=== PATIENT | male | born 1950 | race Caucasian/White ===

== ENCOUNTER 2017-05-15 16:58 | Inpatient (IN) | payer MEDICARE ==
[~2017-05-15] VITALS: Ht 162.6 cm; Wt 72.0 kg
[2017-05-15 20:00] VITALS: BP 136/68
[2017-05-15] MEDS ORDERED: ACETAMINOPHEN 325MG TABLET PO PRN (20:00)
[2017-05-15] MEDS ORDERED: ONDANSETRON HCL 4MG/2ML VIAL IV PRN (20:00)
[2017-05-15] MEDS ORDERED: FAMOTIDINE 20MG TABLET PO NR (20:15)
[2017-05-15] MEDS ORDERED: DEXTROSE 50% WATER 50ML SYRINGE IV PRN (20:30)
[2017-05-15] MEDS: BLOOD SUGAR DIAGNOSTIC STRIP TEST SCH (21:00)
[2017-05-15 22:00] VITALS: BP 136/68
[2017-05-15] MEDS: ATORVASTATIN CALCIUM 40MG TABLET PO SCH (22:00)
[2017-05-15] MEDS: INSULIN LISPRO 100 UNITS/ML SUBCUT SCH (22:11)
[2017-05-15] MEDS: INSULIN GLARGINE UD 100 UNITS/ML SYR SUBCUT SCH (22:22)
[2017-05-16] MEDS: BLOOD SUGAR DIAGNOSTIC STRIP TEST SCH ×4 (06:12→21:04)
[2017-05-16] MEDS: INSULIN LISPRO 100 UNITS/ML SUBCUT SCH ×7 (06:13→21:00)
[2017-05-16 06:42] LABS: EOSINOPHILS % 1.1 % (0.0-5.0); HEMATOCRIT. 39.9 % (42.0-52.0); HEMOGLOBIN. 13.4 g/dL (14.0-18.0); LYMPHOCYTES % 19.1 % (20.0-50.0); MEAN CORPUSCULAR HEMOGLOBIN 30.4 pg (28.0-32.0); MEAN CORPUSCULAR VOLUME 90.3 fL (80.0-94.0); MEAN PLATELET VOLUME 8.1 fl (7.4-10.4); MONOCYTES % 7.4 % (2.0-8.0); NEUTROPHILS % 71.4 % (40.0-76.0); PLATELET 289 x1000/uL (130-400); RED BLOOD CELL COUNT 4.42 mill/uL (4.7-6.1); RED CELL DISTRIBUTION WIDTH 12.8 % (11.6-14.6)
[2017-05-16 07:22] LABS: CHLORIDE 107 mEq/L (98-107)
[2017-05-16 07:33] LABS: PREALBUMIN 24.5 mg/dL (20.0-40.0)
[2017-05-16 08:00] VITALS: BP 122/60
[2017-05-16] MEDS: SENNOSIDES/DOCUSATE SOD 8.6/50MG TABLET PO SCH (08:09)
[2017-05-16] MEDS: ASPIRIN 325MG EC TABLET PO SCH (08:09)
[2017-05-16] MEDS: CLOPIDOGREL 75MG TABLET PO SCH (08:09)
[2017-05-16] MEDS: FAMOTIDINE 20MG TABLET PO SCH ×2 (08:10→21:11)
[2017-05-16] MEDS ORDERED: ASPIRIN 300MG SUPP PR SCH ×2 (09:00)
[2017-05-16] MEDS: METFORMIN HCL 500MG TABLET PO SCH (18:38)
[2017-05-16 20:00] VITALS: BP 129/67
[2017-05-16] MEDS: ATORVASTATIN CALCIUM 40MG TABLET PO SCH (21:11)
[2017-05-16] MEDS: INSULIN GLARGINE UD 100 UNITS/ML SYR SUBCUT SCH (21:11)
[2017-05-17] MEDS: BLOOD SUGAR DIAGNOSTIC STRIP TEST SCH ×2 (05:46→12:12)
[2017-05-17] MEDS: INSULIN LISPRO 100 UNITS/ML SUBCUT SCH ×4 (06:07→12:53)
[2017-05-17 07:02] LABS: BASOPHILS % 0.9 % (0.0-2.0); EOSINOPHILS % 0.7 % (0.0-5.0); HEMATOCRIT. 40.1 % (42.0-52.0); HEMOGLOBIN. 13.6 g/dL (14.0-18.0); LYMPHOCYTES % 16.1 % (20.0-50.0); MEAN CORPUSCULAR HEMOGLOBIN 30.4 pg (28.0-32.0); MEAN CORPUSCULAR VOLUME 89.9 fL (80.0-94.0); MEAN PLATELET VOLUME 8.2 fl (7.4-10.4); NEUTROPHILS % 76.3 % (40.0-76.0); PLATELET 338 x1000/uL (130-400); RED BLOOD CELL COUNT 4.46 mill/uL (4.7-6.1); RED CELL DISTRIBUTION WIDTH 12.5 % (11.6-14.6)
[2017-05-17 07:39] LABS: CHLORIDE 103 mEq/L (98-107)
[2017-05-17 08:00] VITALS: BP 127/63
[2017-05-17] MEDS: ASPIRIN 325MG EC TABLET PO SCH (08:59)
[2017-05-17] MEDS: SENNOSIDES/DOCUSATE SOD 8.6/50MG TABLET PO SCH (08:59)
[2017-05-17] MEDS: FAMOTIDINE 20MG TABLET PO SCH (08:59)
[2017-05-17] MEDS: METFORMIN HCL 500MG TABLET PO SCH (08:59)
[2017-05-17] MEDS: CLOPIDOGREL 75MG TABLET PO SCH (08:59)
[2017-05-17] MEDS: LACTULOSE 20G/30ML UDC PO SCH ×2 (09:00→12:13)
[2017-05-17] MEDS ORDERED: BISACODYL 10MG SUPP PR SCH (09:00)
[2017-05-17] MEDS ORDERED: DOCUSATE SODIUM 100MG CAPSULE PO SCH (09:00)
[2017-05-17 09:27] LABS: T4 FREE 0.87 ng/dL (0.76-1.46)
[2017-05-17] MEDS ORDERED: FINASTERIDE 5MG TABLET PO SCH (16:00)
[2017-05-17] MEDS ORDERED: TAMSULOSIN HCL 0.4MG SR CAPSULE PO SCH (16:00)
[2017-05-17 16:06] VITALS: BP 127/63
[2017-05-17] MEDS ORDERED: POLYETHYLENE GLYCOL 3350 (17GM) 1 DOSE PACK PO SCH (21:00)
[2017-05-18] MEDS ORDERED: BISACODYL 10MG SUPP PR PRN (09:00)
== END 2017-05-17 17:00 | DRG 65 ==
PROVIDERS: ADMIT Physical Medicine & Rehabilitation Spinal Cord Injury Medicine; ATTEND Family Medicine Adult Medicine
DX: I63.9 Cerebral infarction, unspecified (principal); G81.91 Hemiplegia, unspecified affecting right dominant side; R13.10 Dysphagia, unspecified; R47.01 Aphasia; D64.9 Anemia, unspecified; E11.9 Type 2 diabetes mellitus without complications; E78.00 Pure hypercholesterolemia, unspecified; E78.5 Hyperlipidemia, unspecified; I10 Essential (primary) hypertension; R29.810 Facial weakness; R33.8 Other retention of urine; R26.9 Unspecified abnormalities of gait and mobility; R53.81 Other malaise; M79.609 Pain in unspecified limb; Z79.899 Other long term (current) drug therapy; Z82.49 Family history of ischemic heart disease and other diseases of the circulatory system; Z86.73 Personal history of transient ischemic attack (TIA), and cerebral infarction without residual deficits; Z91.19 Patient's noncompliance with other medical treatment and regimen
CPT/HCPCS: 36415; 80048; 80053; 80061; 82270; 82962; 83036; 84134; 84439; 84481; 85025; 92523; 92610; 93306; 93970; 97110; 97112; 97116; 97163; 97166; 97530; 97535; J1815; A4315; A5200